=== PATIENT | male | born 1970 | race Two or more races ===

== ENCOUNTER 2019-12-28 10:14 | Inpatient (IN) | payer OTHER ==
[~2019-12-28] VITALS: Ht 177.8 cm; Wt 81.6 kg
[2020-01-18] MEDS ORDERED: PROSCAR5 MG PO ×2 (14:08→14:42)
[2020-01-18] MEDS ORDERED: BUSPIRONE HCL5 MG PO (14:33)
[2020-01-18] MEDS ORDERED: BENADRYL25 MG PO (14:34)
[2020-01-18] MEDS ORDERED: MULTIVITAMIN PO (14:34)
[2020-01-18] MEDS ORDERED: SAW PALMETTO500 MG PO (14:35)
[2020-01-18] MEDS ORDERED: OMEGA3 PO (14:36)
[2020-01-18] MEDS ORDERED: PROSOM PO (14:40)
[2020-01-20] MEDS ORDERED: ESTAZOLAM2 MG PO (08:47)
[2020-01-20] MEDS ORDERED: MULTI VITAMIN1 EACH PO (08:49)
[2020-01-20] MEDS ORDERED: OMEGA-31000 MG PO (08:49)
[2020-01-23] MEDS ORDERED: HYOSCYAMINE0.125 M1 SL (10:34)
[2020-01-23] MEDS ORDERED: PERCOCET 5-3251 EACH PO (10:35)
[2020-01-23] MEDS ORDERED: PROTONIX40 MG PO (10:35)
== END 2020-01-23 11:21 | disposition home or self-care (01) | DRG 331 ==
LOC: SURG 01-13 07:00 → O/R 01-20 06:44 → SURH 01-20 06:44 → SURG 01-20 07:15 → SURH 01-20 13:08
PROVIDERS: ADMIT Surgery
PROC: 07TB4ZZ Resection of Mesenteric Lymphatic, Percutaneous Endoscopic Approach (ICD-10-PCS; 2020-01-20)
PROC: 0DTF4ZZ Resection of Right Large Intestine, Percutaneous Endoscopic Approach (ICD-10-PCS; principal; 2020-01-20 07:15)
DX: D12.2 Benign neoplasm of ascending colon (principal); F41.8 Other specified anxiety disorders; K76.0 Fatty (change of) liver, not elsewhere classified; R73.01 Impaired fasting glucose; N40.0 Benign prostatic hyperplasia without lower urinary tract symptoms